=== PATIENT | female | born 1955 | race Caucasian/White ===

== ENCOUNTER → 2021-03-20 | Day surgery (SDC) | payer OTHER ==
--- NOTE | 2021-03-19 20:46 | PCM.PREANE ---
Preanesthetic Assessment - Procedure Proposed Procedure: Laparoscopic Assisted Vaginal Hysterectomy - Allergies Allergies/Adverse Reactions: Allergies Allergy/AdvReac Type Severity Reaction Status Date / Time doxycycline Allergy Rash Verified 03/19/21 08:27 erythromycin base Allergy Rash Verified 03/19/21 08:27 sulfamethoxazole Allergy Edema Verified 03/19/21 08:27 [From Bactrim] trimethoprim [From Bactrim] Allergy Edema Verified 03/19/21 08:27 PreAnesthesia Questionnaire Cardiovascular History: Reports: Heart Murmur, Hypertension Genitourinary History: Reports: Other (See Below) Other Genitourinary History: 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 LEG PAIN Other Neuro History: Insomnia Psychiatric History: Reports: ADHD, Anxiety, Depression, Other (See Below) Other Psychiatric History: CONTROLLED SUBSTANCE AGREEMENT SIGNED - Past Surgical History HEENT Surgical History: Reports: Tonsillectomy Female Surgical History: Reports: Cervical Conization Neurological Surgical History: Reports: Lumbar Spine Musculoskeletal Surgical History: Reports: Joint Replacement Other Musculoskeletal Surgeries/Procedures:: BILATERAL HIP ARTHROPLASTY. BACK SURGERY X 2. DECOMPRESSION IN LUMBAR REGION. SPACER IN SPINE. - SUBSTANCE USE Tobacco Use Status *Q: Never Tobacco User Tobacco Use Within Last Twelve Months: No Number of Drinks Per Day: 1 Recreational Drug Use History: No - HOME MEDS Home Medications: Home Meds ALPRAZolam [Xanax] 0.5 mg PO DAILY PRN 03/18/21 [History] Acetaminophen [Tylenol] 650 mg PO Q4HR PRN 03/18/21 [History] Cranberry Fruit Extract [Cranberry] 250 mg PO DAILY 03/18/21 [History] Meloxicam 7.5 mg PO DAILY 03/18/21 [History] Metoprolol Tartrate [Lopressor] 50 mg PO DAILY 03/18/21 [History] Multivitamin with Minerals [Hair, Skin & Nails] 1 each PO DAILY 03/18/21 [History] Sertraline [Zoloft] 100 mg PO DAILY 03/18/21 [History] Zolpidem [Ambien] 10 mg PO BEDTIME PRN 03/18/21 [History] busPIRone [Buspar] 15 mg PO BID 03/18/21 [History] cloNIDine HCL [Clonidine HCl] 0.1 mg PO DAILY 03/18/21 [History] traMADol [Ultram] 25 - 50 mg PO DAILY PRN 03/18/21 [History] - CURRENT (IN HOUSE) MEDS Current Meds: Current Medications Lactated Ringer's (Ringers, Lactated) 1,000 mls @ 125 mls/hr IV ASDIRECTED NORY Stop: 03/20/21 23:00 Lidocaine/Sodium Bicarbonate (Lidocaine 1%/Sod Bicarbonate In Ns 8.4% 1 Ml Syringe) 0.25 ml IDERM ONETIME PRN PRN Reason: Prior to IV Start Stop: 03/20/21 18:00 Sodium Chloride (Sodium Chloride 0.9% 10 Ml Syringe) 10 ml FLUSH ASDIRECTED PRN PRN Reason: Keep Vein Open Stop: 03/20/21 18:00
[~2021-03-20] MED LIST: Bupivacaine 0.5% 30 ML SDV ONE; Ketorolac 30 MG/ML SDV ONE; Lactated Ringers 1,000 ML IV SCH; Lidocaine 1% with EPINEPHrine 1:100,000 10 ML MDV ONE; Lidocaine 1%/Sod Bicarbonate in NS 8.4% 1 ML Syringe IDERM PRN; Midazolam 1 MG/ML 2 ML SDV ONE; Propofol 200 MG/20 ML SDV ONE; Rocuronium 50 MG/5 ML Vial ONE; Sodium Chloride 0.9% 10 ML Syringe FLUSH PRN; fentaNYL 250 MCG/5 ML SDV ONE
== END ==
LOC: JD.SDS 06:57
PROVIDERS: ATTEND Obstetrics & Gynecology
DX: R50.9 Fever, unspecified (principal); Z53.8 Procedure and treatment not carried out for other reasons
CPT/HCPCS: J2704; J3010; J1885; J2250; J3490

== ENCOUNTER 2021-05-08 06:38 | Day surgery (SDC) | payer MEDICARE, OTHER ==
[~2021-05-08 06:38] MED LIST changes: -Bupivacaine 0.5% 30 ML SDV ONE; -Ketorolac 30 MG/ML SDV ONE; -Lidocaine 1% with EPINEPHrine 1:100,000 10 ML MDV ONE; -Midazolam 1 MG/ML 2 ML SDV ONE; -Propofol 200 MG/20 ML SDV ONE; -Rocuronium 50 MG/5 ML Vial ONE; -fentaNYL 250 MCG/5 ML SDV ONE
--- NOTE | 2021-05-08 07:08 | PCM.OPNOTE ---
- General Post-Op/Procedure Note Date of Surgery/Procedure: 05/08/21 Operative Procedure(s): Laparoscopic assisted vaginal hysterectomy and bilateral salpingo-oophorectomy Findings: Vaginal exam at start of case shows very limited normal cervix anteriorly. Small area thought to os. Posterior cervix hard to discern and distinguish from vaginal mucosa. Fairly notable atrophy. Intraabdominal evaluation with atrophic ovaries. In the posterior cul de sac there is a moderate amount of adhesions between the peritoneum and the cervix/uterosacral ligaments. Pre Op Diagnosis: History of CKC x 2. HSIL pap - inadequate colposcopy. 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 The patient was taken to the Operating Room where general anesthesia was induced without complication. The patient was placed in dorsal lithotomy with Enrique Stirrups and an exam under anesthesia revealed the findings detailed above. The patient was then prepped and draped in the usual sterile fashion. A sponge stick was placed in the vagina. A Felix catheter was placed in sterile fashion. Attention was then turned to the patients abdomen where a Veress needle was carefully introduced into the peritoneal cavity while tenting the abdominal wall. Intraperitoneal placement was confirmed by free flow of saline into the abdomen from a syringe open to gravity and with a low intraabdominal pressure with insufflation of C02 gas on low flow. The gas was increased to high flow and a pneumoperitoneum was obtained with C02 gas to a pressure of 15 mm Hg. A 5 mm skin incision was made in a vertical fashion in the umbilical fold and a 5 mm blunt trocar was inserted into the abdomen with direct visualization of the laparoscope through the clear view trocar lens. 5 mm skin incisions were made in both the left and right lower quadrants approximately 10 cm lateral and 3 cm inferior to the umbilicus. 5 mm blunt trocars were inserted into the abdomen under direct visualization with care to avoid the abdominal wall vasculature. A blunt probe and grasper were inserted through the accessory ports and a survey of the abdomen revealed the findings detailed above. First the adhesive disease between the posterior peritoneum and the cervix was attempted to be taken down with the LigaSure and blunt dissection. The right fallopian tube was elevated with the blunt graspers at the fimbriated end. The LigaSure was used to grasp, elevate, cauterize and transect the infundibulopelvic ligament. Next the LigaSure was used to cauterize and transect the right adnexa toward the uterus to the level of the round ligament. The round ligament on the right was then elevated, cauterized, and transected with the LigaSure. Next, the vesicouterine peritoneum was elevated gently with a blunt grasper and the LigaSure and a Kittner were used dissect the vesicouterine peritoneum to make a bladder flap. Two more small bites along the right side of the uterus were made with the LigaSure to skeletonize the uterine artery. Hemostasis was noted. The exact same procedure was carried out on the left. The left fallopian tube and ovary, however, were transected from the uterus and then placed into the anterior cul de sac. The CO2 gas was turned off and the laparoscope was removed. Attention was then turned to the vaginal portion of the procedure. A short weighted speculum was placed in the vagina, and the cervix was grasped with an Allis clamp. The cervix was injected circumferentially with 10 mL of lidocaine with dilute epinephrine. The cervix was then circumferentially incised with a scalpel. A Raytec was used to bluntly dissect the cervix circumferentially until an avascular plane was obtained. There was some difficulty entering the posterior cul de sac. Some small amount of tunneling inferior to the peritoneum was done, but the peritoneum was able to be entered sharply with Pineda Scissors. The short weighted speculum was replaced by the long weighted speculum. The ut erosacral ligaments were grasped on either side with the LigaSure, cauterized, and transected. The bladder was dissected off the pubovesical cervical fascia anteriorly with a sponge and blunt dissection. The anterior cul-de-sac was then entered sharply without difficulty. The cardinal ligaments were then serially clamped on both sides with the LigaSure, cauterized, and transected. The uterine arteries were then clamped with the LigaSure, cauterized, and transected. The fundus and adnexa were confirmed to be free of any further peritoneal attachments and then were pulled out through the vagina. Unfortunately the left ovary was not able to be grasped and removed initially. The posterior peritoneum was reapproximated with a few interrupted sutures of 0 Vicryl and then closed with a running, locked suture of 0 Vicryl. The vaginal cuff was closed with two sutures of 0-Vicryl started at either apex and run towards the midline in a running locked fashion. Hemostasis was noted. Attention was then again turned to the abdomen. All members of the surgical team changed gloves. The laparoscope was again inserted and the abdomen was again insufflated with CO2. The pedicles were again visualized. Irrigation of the pedicles was performed. Cirilo seal was placed along the vaginal cuff. Hemostasis was confirmed. The right lower abdomen trocar was replaced with a 10 mm trocar and the left ovary and fallopian tube were removed without difficulty through this port. The 10 mm port was then removed and the [place] inlet closure device was placed into the abdomen and the fascia reapproximated with a suture of 0 Vicryl. The patient was taken out of Trendelenberg position. The left accessory trocar was removed under direct visualization. The pneumoperitoneum was allowed to escape. The umbilical trocar was removed and lastly the camera was removed from the abdomen under direct visualization to confirm no herniation into the port site. All skin incisions were re- approximated with 4-0 Monocryl and sealed with Dermabond. Hemostasis was noted. A total of 10 cc of 0.25% Marcaine was injected into the subcutaneous tissues surrounding the skin incisions for local anesthesia. All sponge, lap, needle, and instrument counts were correct x 2. The patient tolerated the procedure well and there were no complications.
--- NOTE | 2021-05-08 07:11 | PCM.PREANE ---
Preanesthetic Assessment - Anesthesia/Transfusion/Family Hx Anesthesia History: Prior Anesthesia Without Reaction Family History of Anesthesia Reaction: No Transfusion History: Prior Transfusion Without Reaction - Review of Systems General: No Symptoms Pulmonary: No Symptoms Cardiovascular: Other (HTN, took this am) Gastrointestinal: No Symptoms Neurological: No Symptoms Other: Reports: Depression, Anxiety - Physical Assessment NPO Status Date: 05/07/21 NPO Status Time: 22:00 Weight: 82 kg ASA Class: 2 Mental Status: Alert & Oriented x3 Airway Class: Mallampati = 2 Dentition: Reports: Normal Dentition Thyro-Mental Finger Breadths: 3 Mouth Opening Finger Breadths: 3 ROM/Head Extension: Full Lungs: Clear to Auscultation, Normal Respiratory Effort Cardiovascular: Regular Rate, Regular Rhythm, Other (she states that she has been told she has a heart murmur) - Allergies Allergies/Adverse Reactions: Allergies Allergy/AdvReac Type Severity Reaction Status Date / Time doxycycline Allergy Rash Verified 05/07/21 14:25 erythromycin base Allergy Rash Verified 05/07/21 14:25 sulfamethoxazole Allergy Edema Verified 05/07/21 14:25 [From Bactrim] trimethoprim [From Bactrim] Allergy Edema Verified 05/07/21 14:25 - Blood Blood Available: No Product(s) Available: None - Anesthesia Plan Beta Edgardo: Metoprolol Med Last Dose Date: 05/08/21 Med Last Dose Time: 05:30 - Acknowledgements Anesthesia Type Planned: General Anesthesia Pt an Appropriate Candidate for the Planned Anesthesia: Yes Alternatives and Risks of Anesthesia Discussed w Pt/Guardian: Yes Pt/Guardian Understands and Agrees with Anesthesia Plan: Yes PreAnesthesia Questionnaire HEENT History: Reports: None Cardiovascular History: Reports: Heart Murmur, Hypertension Respiratory History: Reports: None Gastrointestinal History: Reports: None Genitourinary History: Reports: Other (See Below) Other Genitourinary History: 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 LEG PAIN Neurological History: Reports: None Psychiatric History: Reports: ADHD, Anxiety, Depression, Other (See Below) Other Psychiatric History: CONTROLLED SUBSTANCE AGREEMENT SIGNED Endocrine/Metabolic History: Reports: None Hematologic History: Reports: None Immunologic History: Reports: None Oncologic (Cancer) History: Reports: None Dermatologic History: Reports: None - Past Surgical History Head Surgeries/Procedures: Reports: None HEENT Surgical History: Reports: Tonsillectomy Cardiovascular Surgical History: Reports: None Respiratory Surgical History: Reports: None GI Surgical History: Reports: None Female Surgical History: Reports: Cervical Conization Endocrine Surgical History: Reports: None Neurological Surgical History: Reports: None Musculoskeletal Surgical History: Reports: Joint Replacement Other Musculoskeletal Surgeries/Procedures:: BILATERAL HIP ARTHROPLASTY. BACK SURGERY X 2. DECOMPRESSION IN LUMBAR REGION. SPACER IN SPINE. Oncologic Surgical History: Reports: None Dermatological Surgical History: Reports: None - SUBSTANCE USE Tobacco Use Status *Q: Never Tobacco User Days Per Week of Alcohol Use: 7 Number of Drinks Per Day: 1 Total Drinks Per Week: 7 Recreational Drug Use History: No - HOME MEDS Home Medications: Home Meds ALPRAZolam [Xanax] 0.5 mg PO DAILY PRN 03/18/21 [History] Acetaminophen [Tylenol] 650 mg PO Q4HR PRN 03/18/21 [History] Cranberry Fruit Extract [Cranberry] 250 mg PO DAILY 03/18/21 [History] Meloxicam 7.5 mg PO DAILY 03/18/21 [History] Metoprolol Tartrate [Lopressor] 50 mg PO DAILY 03/18/21 [History] Multivitamin with Minerals [Hair, Skin & Nails] 1 each PO DAILY 03/18/21 [History] Sertraline [Zoloft] 100 mg PO DAILY 03/18/21 [History] Zolpidem [Ambien] 10 mg PO BEDTIME PRN 03/18/21 [History] busPIRone [Buspar] 15 mg PO BID 03/18/21 [History] cloNIDine HCL [Clonidine HCl] 0.1 mg PO DAILY 03/18/21 [History] - CURRENT (IN HOUSE) MEDS Current Meds: Current Medications Lactated Ringer's (Ringers, Lactated) 1,000 mls @ 125 mls/hr IV ASDIRECTED NORY Stop: 05/08/21 23:00 Lidocaine/Sodium Bicarbonate (Lidocaine 1%/Sod Bicarbonate In Ns 8.4% 1 Ml Syringe) 0.25 ml IDERM ONETIME PRN PRN Reason: Prior to IV Start Stop: 05/08/21 18:00 Sodium Chloride (Sodium Chloride 0.9% 10 Ml Syringe) 10 ml FLUSH ASDIRECTED PRN PRN Reason: Keep Vein Open Stop: 05/08/21 18:00
[2021-05-08] MEDS ORDERED: Bupivacaine 0.5% 30 ML SDV ONE (07:14)
[2021-05-08] MEDS ORDERED: Propofol 200 MG/20 ML SDV ONE ×2 (07:20→10:15)
[2021-05-08] MEDS ORDERED: ceFAZolin 1 GM Vial ONE (07:20)
[2021-05-08] MEDS ORDERED: Lactated Ringers 1,000 ML ONE (07:20)
[2021-05-08] MEDS ORDERED: HYDROmorphone 0.5 MG/0.5 ML Syringe ONE (07:20)
[2021-05-08] MEDS ORDERED: Midazolam 1 MG/ML 2 ML SDV ONE (07:20)
[2021-05-08] MEDS ORDERED: Dexamethasone 4 MG/ML 5 ML MDV ONE (07:20)
[2021-05-08] MEDS ORDERED: Ketorolac 30 MG/ML SDV ONE (07:20)
[2021-05-08] MEDS ORDERED: Ondansetron 4 MG/2 ML SDV ONE (07:20)
[2021-05-08] MEDS ORDERED: Rocuronium 50 MG/5 ML Vial ONE (07:20)
[2021-05-08] MEDS ORDERED: Lidocaine 1% 4 ML ONE (07:21)
[2021-05-08] MEDS ORDERED: fentaNYL 250 MCG/5 ML SDV ONE (07:21)
[2021-05-08] MEDS ORDERED: fentaNYL 100 MCG/2 ML SDV IVPUSH PRN (08:19)
[2021-05-08] MEDS ORDERED: HYDROmorphone 0.5 MG/0.5 ML Syringe IVPUSH PRN (08:19)
[2021-05-08] MEDS ORDERED: Ondansetron 4 MG/2 ML SDV IVPUSH PRN (08:19)
[2021-05-08] MEDS ORDERED: Ketamine 500 mg/10 ML MDV ONE (08:23)
[2021-05-08] MEDS: Lidocaine 1% with EPINEPHrine 1:100,000 10 ML MDV ONE ×2 (08:31→08:41)
--- NOTE | 2021-05-08 10:54 | PCM.POSTAN ---
POST ANESTHESIA ASSESSMENT - MENTAL STATUS Mental Status: Alert, Oriented - VITAL SIGNS Vital Signs: Last Vital Signs Temp 36.7 C 05/08/21 07:00 Pulse 65 05/08/21 07:00 Resp 16 05/08/21 07:00 BP 110/65 05/08/21 07:00 Pulse Ox 94 L 05/08/21 07:00 - RESPIRATORY Respiratory Status: Respiratory Rate WNL, Airway Patent, O2 Saturation Stable, Supplemental Oxygen - CARDIOVASCULAR CV Status: Pulse Rate WNL, Blood Pressure Stable - GASTROINTESTINAL GI Status: No Symptoms - PAIN Pain Score: 0 - POST OP HYDRATION Hydration Status: Adequate & Stable
--- NOTE | 2021-05-08 12:07 | PCM48HPAN ---
Post Anesthesia Note - EVALUATION WITHIN 48HRS OF ANESTHETIC Vital Signs in Normal Range: Yes Patient Participated in Evaluation: Yes Respiratory Function Stable: Yes Airway Patent: Yes Cardiovascular Function Stable: Yes Hydration Status Stable: Yes Pain Control Satisfactory: Yes Nausea and Vomiting Control Satisfactory: Yes Mental Status Recovered: Yes Vital Signs: Last Vital Signs Temp 36.6 C 05/08/21 11:45 Pulse 56 L 05/08/21 11:45 Resp 12 05/08/21 11:45 BP 104/60 05/08/21 11:45 Pulse Ox 94 L 05/08/21 11:45
[2021-05-08] MEDS ORDERED: Acetaminophen/oxyCODONE 325-5 MG Tab PO ONE (12:45)
== END 2021-05-08 14:28 | disposition home or self-care (01) ==
LOC: JD.SDS 06:38
PROVIDERS: ATTEND Obstetrics & Gynecology
DX: D25.9 Leiomyoma of uterus, unspecified (principal); N87.1 Moderate cervical dysplasia; N84.0 Polyp of corpus uteri; G89.29 Other chronic pain; I10 Essential (primary) hypertension; Z98.890 Other specified postprocedural states; Z88.1 Allergy status to other antibiotic agents; Z88.8 Allergy status to other drugs, medicaments and biological substances; Z79.899 Other long term (current) drug therapy; Z01.812 Encounter for preprocedural laboratory examination; Z20.822 Contact with and (suspected) exposure to COVID-19
CPT/HCPCS: 36415; 58552; 80048; 85025; 86850; 86900; 86901; 88309; A9270; J0690; J1100; J1170; J2250; J2405; J2704; J2710; J3010; J3490; J7120; U0002; 00944; J1885